=== PATIENT | female | born 1970 | race Caucasian/White ===

== ENCOUNTER 2016-11-06 11:08 | Emergency (ER) | payer OTHER ==
[~2016-11-06] VITALS: Ht 157.5 cm; Wt 72.6 kg
[~2016-11-06 11:08] MED LIST: ALBUTEROL0.09 MG/A1 INH; BACTRIM DS 8001 TAB PO; LEVOTHROID SO0.05 MG PO; LIOTHYRONINE SO5 MCG; MOTRIN600 MG PO; MOTRIN800 MG PO; MULTIVITAMIN1 TAB PO; PERCOCET 325 MG1 TA2 PO; TYLENOL #31 TAB PO; ZOFRAN ODT4 MG PO
[2016-11-06 11:12] VITALS: BP 130/81
--- NOTE | 2016-11-06 11:18 | ED HEADACHE COMPLAINT ---
History of Present Illness General Chief Complaint: Headache Stated Complaint: MIGRAINE Source: patient Exam Limitations: no limitations Vital Signs & Intake/Output Vital Signs & Intake/Output Vital Signs Date Time Temp Pulse Resp B/P Pulse O2 O2 Flow FiO2 Ox Delivery Rate 11/06 1112 96.8 68 16 130/81 97 Room Air Allergies Coded Allergies: NO KNOWN ALLERGIES (09/15/15) Reconcile Medications Albuterol Sulfate (Albuterol Sulfate Hfa) 0.09 MG/Actuation DIOGO 2 PUFF INH PRN ASTHMA (Reported) 90 MCG PER PUFF Butalb/Acetaminophen/Caffeine (Fioricet 50-300-40 MG Capsule) 50 MG-300 MG-40 MG CAPSULE 1 TAB PO TID PRN MIGRAINE Ibuprofen (Motrin) 600 MG TAB 1 TAB PO Q6P PRN PAIN Ketorolac Tromethamine 10 MG TABLET 1 TAB PO TID PRN MIGRAINE RECEIVED IM IN ER Levothyroxine Sodium (Levothroid Sodium) 0.05 MG TAB 1 TAB PO DAILY AC THYROID (Reported) Liothyronine Sodium (Unknown Strength) TAB (Unknown Dose) UNKNOWN (Reported) Metoclopramide HCl (Reglan) 10 MG TABLET 1 TAB PO 4 TIMES/DAY PRN NAUSEA Multivitamin (Multiple Vitamins) 1 TAB TAB 1 TAB PO DAILY SUPPLEMENT ( Reported) Ondansetron (Zofran Odt) 4 MG ODT 1 TAB PO Q8P PRN NAUSEA OXYCODONE HCL/ACETAMINOPHEN (Percocet 5-325 MG Tablet) 325 MG/5 MG TAB 1-2 TAB PO Q4-6 PRN PRN PAIN Sulfamethoxazole/Trimethopri (Bactrim Ds 800 MG-160 MG) 1 TAB TAB 1 TAB PO BID ANTIBIOTIC (Reported) Triage Note: 46 YEAR OLD FEMALE HISTORY OF MIGRAINES COMPLAINS OF R SIDE HEAD PAIN FOR FEW DAYS Triage Nurses Notes Reviewed? yes Onset: Gradual Duration: constant Timing: recent history Severity Numbers: 7 Head Injury Location: temporal No Modifying Factors: none HPI: Patient is a 46-year-old female who presents emergency room stating that she has chronic migraines in the past few months the migraines have been increasing in frequency and duration in which she presents with a 2 day history of gradual onset of persistent right-sided migraine temporal headache. Patient has soaked his symptoms of mild nausea without emesis and photophobia. Denies any acute onset or thunderclap headache or worse headache of life. Patient has been taking Relpax with minimal relief of symptoms. Patient does not have an established neurologist (SAMIRA REYEZ) Past History Travel History Traveled to [place] past 21 day No Medical History Any Pertinent Medical History? 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 No (SAMIRA REYEZ) Review of Systems Review of Systems Constitutional: Reports: no symptoms. Eyes: Reports: see HPI, photophobia. Ears, Nose, Throat, Mouth: Reports: no symptoms. Respiratory: Reports: no symptoms. Cardiovascular: Reports: no symptoms. Gastrointestinal/Abdominal: Reports: see HPI, nausea. Denies: abdominal pain. Genitourinary: Reports: no symptoms. Musculoskeletal: Reports: no symptoms. Skin: Reports: no symptoms. Neurological/Psychological: Reports: see HPI, headache. Hematologic/Endocrine: Reports: no symptoms. Endocrine: Reports: no symptoms. Immunologic/Allergic: Reports: no symptoms. All Other Systems: Reviewed and Negative (SAMIRA REYEZ) Physical Exam Physical Exam General Appearance: no apparent distress, alert, comfortable Cranial Nerves: normal hearing, normal speech, PERRL Comments: Well-developed well-nourished person in no acute distress HEENT: Normal EENT exam, extraocular motion intact, no nystagmus. Pupils equally round and reactive to light and accommodation. Nose is atraumatic. External auditory canal and Tympanic membranes clear. Pharynx normal. No swelling or edema. Neck: Supple, no lymphadenopathy, normal range of motion without pain or tenderness Back: Nontender, no CVA tenderness Cardiovascular: Regular rate and rhythms no murmurs rubs or gallops, normal JVP Respiratory: Chest nontender. No respiratory distress.breath sounds clear to auscultation bilaterally Abdomen: Soft, nontender nondistended, no appreciable organomegaly. Normal bowel sounds. No ascites Extremity: No edema, no calf tenderness to palpation, normal and equal pulses. Neuro: Alert oriented x3, motor sensory normal, cranial nerves II through XII grossly intact. Skin: No appreciable rash on exposed skin, skin is warm and dry. Psych: Mood and affect is normal, memory and judgment is normal. Core Measures Severe Sepsis Present: No Septic Shock Present: No (SAMIRA REYEZ) Progress Differential Diagnosis: carotid dissection, cav sinus thromb, cluster ALBA, encephalitis, IC mass/tumor, intracranial Hem., meningitis, migraine ALBA, musculoskeletal pain, post LP headache, sinusitis, SSS thrombosis, subarach. Hem., tension ALBA, temporal arteritis, TMJ syndrome, viral cephalgia Plan of Care: Current Medications Sig/Demetria Start time Last Medication Dose Stop Time Status Admin Ketorolac 30 MG ONCE ONE 11/06 114 UNVr Tromethamine 11/06 114 (Toradol) Patient currently due to HPI and exam findings shows no concerns of subarachnoid hemorrhage. Patient was able tolerate by mouth Patient was strongly advised follow-up with neurologist Upon discharge patient looks well no apparent distress and will comply with discharge instructions and had no questions (SAMIRA REYEZ) Departure Departure Disposition: HOME OR SELF CARE Condition: Stable Clinical Impression Primary Impression: Migraine Referrals: MICHAEL TRAN,SAMIRA KIRKPATRICK MD,KALPANA (PCP/Family) Additional Instructions: As discussed begin the prescription of ketorolac for pain and migraines. Begin the prescription of Fioricet for breakthrough migraine relief. Begin the prescription of Reglan for nausea, prescription is waiting at [facility]. On Wednesday follow-up and established neurologist Dr. Cramer. If symptoms worsen return to emergency room. Begin drinking plenty of water for hydration Departure Forms: Customer Survey General Discharge Information Prescriptions: Current Visit Scripts Ketorolac Tromethamine 1 TAB PO TID PRN MIGRAINE #15 TAB RECEIVED IM IN ER Butalb/Acetaminophen/Caffeine (Fioricet 50-300-40 MG Capsule) 1 TAB PO TID PRN MIGRAINE #15 TAB Metoclopramide HCl (Reglan) 1 TAB PO 4 TIMES/DAY PRN NAUSEA #15 TAB (SAMIRA REYEZ) PA/BACK OFFICE MEDICAL ASSISTANT Co-Sign Statement Statement: ED Attending supervision documentation- [] I saw and evaluated the patient. I have also reviewed all the pertinent lab results and diagnostic results. I agree with the findings and the plan of care as documented in the PA's/BACK OFFICE MEDICAL ASSISTANT's documentation. [X] I have reviewed the ED Record and agree with the PA's/BACK OFFICE MEDICAL ASSISTANT's documentation. [] Additions or exceptions (if any) to the PAs/BACK OFFICE MEDICAL ASSISTANT's note and plan are summarized below: [] (DAVON TRAN,NIDIA)
[2016-11-06] MEDS ORDERED: KETOROLAC TROME10 M1 PO (11:48)
[2016-11-06] MEDS ORDERED: REGLAN10 M1 PO (11:48)
[2016-11-06] MEDS ORDERED: FIORICET 50-301 EACH PO (11:48)
== END 2016-11-06 12:02 ==
LOC: ERH 11:08
DX: G43.909 Migraine, unspecified, not intractable, without status migrainosus (principal)
CPT/HCPCS: 96372; J1885

== ENCOUNTER 2016-11-07 08:26 | Emergency (ER) | payer OTHER ==
[~2016-11-07] VITALS: Ht 157.5 cm; Wt 72.6 kg
[~2016-11-07 08:26] MED LIST changes: +FIORICET 50-301 EACH PO; +KETOROLAC TROME10 M1 PO; +REGLAN10 M1 PO
--- NOTE | 2016-11-07 10:47 | ED HEADACHE COMPLAINT ---
History of Present Illness General Chief Complaint: Headache Stated Complaint: HEADACHE, SEEN YEST Source: patient Exam Limitations: no limitations Vital Signs & Intake/Output Vital Signs & Intake/Output Vital Signs Date Time Temp Pulse Resp B/P Pulse O2 O2 Flow FiO2 Ox Delivery Rate 11/07 1159 97.5 68 18 109/57 99 Room Air 11/07 0834 97.9 76 18 111/73 98 Room Air Room Air ED Intake and Output 11/08 0000 11/07 1200 Intake Total Output Total Balance Patient 160 lb Weight Allergies Coded Allergies: NO KNOWN ALLERGIES (09/15/15) Reconcile Medications Albuterol Sulfate (Albuterol Sulfate Hfa) 0.09 MG/Actuation DIOGO 2 PUFF INH PRN ASTHMA (Reported) 90 MCG PER PUFF Butalb/Acetaminophen/Caffeine (Fioricet 50-300-40 MG Capsule) 50 MG-300 MG-40 MG CAPSULE 1 TAB PO TID PRN MIGRAINE Ibuprofen (Motrin) 600 MG TAB 1 TAB PO Q6P PRN PAIN Ketorolac Tromethamine 10 MG TABLET 1 TAB PO TID PRN MIGRAINE RECEIVED IM IN ER Levothyroxine Sodium (Levothroid Sodium) 0.05 MG TAB 1 TAB PO DAILY AC THYROID (Reported) Liothyronine Sodium (Unknown Strength) TAB (Unknown Dose) UNKNOWN (Reported) Metoclopramide HCl (Reglan) 10 MG TABLET 1 TAB PO 4 TIMES/DAY PRN NAUSEA Multivitamin (Multiple Vitamins) 1 TAB TAB 1 TAB PO DAILY SUPPLEMENT ( Reported) Ondansetron (Zofran Odt) 4 MG ODT 1 TAB PO Q8P PRN NAUSEA OXYCODONE HCL/ACETAMINOPHEN (Percocet 5-325 MG Tablet) 325 MG/5 MG TAB 1-2 TAB PO Q4-6 PRN PRN PAIN Sulfamethoxazole/Trimethopri (Bactrim Ds 800 MG-160 MG) 1 TAB TAB 1 TAB PO BID ANTIBIOTIC (Reported) Triage Note: TRIAGE: 46 Y/O FEMALE PRESENTS C/O MIGRAINE SINCE YESTERDAY. "I WAS SEEN YESTERDAY FOR SAME. THEY GAVE ME A NEEDLE AND SCRIPTS TO GO HOME WITH." +PHOTOPHOBIA. Triage Nurses Notes Reviewed? yes HPI: 46-year-old female with a history of headaches in the past is here for evaluation in room 6 for a migraine type headache that she has had for the past 2 days. She was seen in the emergency Department yesterday here at [facility]. She received Toradol 60 mg IM and then was given a prescription for Fioricet and Toradol for her to go home with. He reports she has been alternating the doses as instructed and she does not feel any better. She has phonophobia and photophobia with slight nausea but no vomiting. She reports this is not worse than she has ever had in headaches previously. She denies any blurred vision, dizziness lightheadedness or any other pain. (ANTHONY CHACON APRN) Past History Travel History Traveled to [facility] past 21 day No Medical History Any Pertinent Medical History? 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 No (ANTHONY CHACON APRN) Review of Systems Review of Systems Constitutional: Reports: see HPI. Eyes: Reports: no symptoms, photophobia. Ears, Nose, Throat, Mouth: Reports: no symptoms. Respiratory: Reports: no symptoms. Cardiovascular: Reports: no symptoms. Gastrointestinal/Abdominal: Reports: nausea. Genitourinary: Reports: no symptoms. Musculoskeletal: Reports: no symptoms. Skin: Reports: no symptoms. Neurological/Psychological: Reports: headache. Hematologic/Endocrine: Reports: no symptoms. Endocrine: Reports: no symptoms. Immunologic/Allergic: Reports: no symptoms. All Other Systems: Reviewed and Negative (ANTHONY CHACON APRN) Physical Exam Physical Exam General Appearance: well developed/nourished, alert, awake, mild distress Head: atraumatic, normal appearance Eyes: Bilateral: normal appearance, PERRL, EOMI. Neck: normal inspection, supple, full range of motion Respiratory: normal breath sounds, chest non-tender, no respiratory distress, quiet respiration Cardiovascular: regular rate/rhythm Gastrointestinal: normal bowel sounds, soft, non-tender Back: normal inspection, normal range of motion Extremities: normal inspection, normal capillary refill, normal range of motion, no edema Psychiatric: awake, alert, oriented x 3 Cranial Nerves: normal hearing, normal speech, PERRL Motor/Sensory: no motor/sensory deficits Skin: intact, normal color, warm/dry Core Measures Severe Sepsis Present: No Septic Shock Present: No (ANTHONY CHACON APRN) Progress Differential Diagnosis: migraine ALBA, musculoskeletal pain, tension ALBA Comments: Patient feels better after fluids, medications. She would like to go home. She will take Excedrin Migraine when she goes home and take the Toradol and Fioricet sparingly. She will follow up with a neurologist has already dictated. Case discussed with Dr. Limon. (ANTHONY CHACON APRN) Plan of Care: Orders Procedure Date/time Status Add-on Test (ER Only) 11/07 1120 Active COMPREHENSIVE METABOLIC PANEL 11/07 1057 Complete CBC WITHOUT DIFFERENTIAL 11/07 1057 Complete Laboratory Tests 11/07/16 1105: Anion Gap 8, Estimated GFR > 60, BUN/Creatinine Ratio 32.9 H, Glucose 114 H, Calcium 9.2, Total Bilirubin 0.5, AST 18, ALT 32, Alkaline Phosphatase 96, Total Protein 6.6, Albumin 4.0, Globulin 2.6, Albumin/Globulin Ratio 1.5, CBC w Diff NO MAN DIFF REQ, RBC 5.24, MCV 88.5, MCH 29.4, RDW 13.1, MPV 8.2, Gran % 76.5 H , Lymphocytes % 18.0 L, Monocytes % 4.3, Eosinophils % 0.5, Basophils % 0.7, Absolute Granulocytes 6.9 H, Absolute Lymphocytes 1.6, Absolute Monocytes 0.4, Absolute Eosinophils 0, Absolute Basophils 0.1, PUBS MCHC 33.3 Departure Departure Time of Disposition: 1251 Disposition: HOME OR SELF CARE Condition: Stable Clinical Impression Primary Impression: Migraine headache Qualifiers: Migraine type: without aura Status migrainosus presence: with status migrainosus Intractability: intractable Qualified Code: G43.011 - Migraine without aura, intractable, with status migrainosus Referrals: CASIMIRO TRAN,KALPANA (PCP/Family) Additional Instructions: Please follow up with Dr. Casimiro romero for better headache management and referral to neurologist. Dr. Cramer was given for a referral yesterday or Dr. Nina IS A HEADACHE SPEAcilist. Departure Forms: Customer Survey General Discharge Information (ANTHONY CHACON APRN) PA/GLUCOSE AND SYRUP WEIGHER Co-Sign Statement Statement: ED Attending supervision documentation- [] I saw and evaluated the patient. I have also reviewed all the pertinent lab results and diagnostic results. I agree with the findings and the plan of care as documented in the PA's/GLUCOSE AND SYRUP WEIGHER's documentation. [X] I have reviewed the ED Record and agree with the PA's/GLUCOSE AND SYRUP WEIGHER's documentation. [] Additions or exceptions (if any) to the PAs/GLUCOSE AND SYRUP WEIGHER's note and plan are summarized below: [] (DAVON TRAN,NIDIA)
[2016-11-07 11:15] LABS: ABSOLUTE BASOPHIL COUNT 0.1 /CUMM (0.0-0.2); ABSOLUTE EOSINOPHIL COUNT 0 /CUMM (0.0-0.7); ABSOLUTE GRANULOCYTE CT 6.9 /CUMM (1.4-6.5); ABSOLUTE LYMPH COUNT 1.6 /CUMM (1.2-3.4); ABSOLUTE MONOCYTE COUNT 0.4 /CUMM (0.10-0.60); BASOPHIL % 0.7 % (0.0-2.0); EOSINOPHIL % 0.5 % (0-5); GRANULOCYTE % 76.5 % (42.2-75.2); HEMATOCRIT 46.4 % (37-47); MEAN CORPUSCULAR HGB 29.4 PG (27.0-31.0); MEAN CORPUSCULAR HGB CONC 33.3 G/DL (33.0-37.0); MEAN CORPUSCULAR VOLUME 88.5 FL (81.0-99.0); MEAN PLATELET VOLUME 8.2 FL (7.4-10.4); PLATELET COUNT 258 /CUMM (130-400); RBC DISTRIBUTION WIDTH 13.1 % (11.5-14.5); RED BLOOD CELL CT 5.24 /CUMM (4.20-5.40)
[2016-11-07 11:59] VITALS: BP 109/57
== END 2016-11-07 13:15 ==
LOC: ERH 08:26
PROVIDERS: Nurse Practitioner Family
DX: G43.909 Migraine, unspecified, not intractable, without status migrainosus (principal)
CPT/HCPCS: 96361; 96365; 96375; J1200; J1885; J2765